=== PATIENT | female | born 1960 | race Caucasian/White ===

== ENCOUNTER → 2017-04-29 | Outpatient (CLI) | payer BC ==
[~2017-04-29] MED LIST: ABILIFY2 MG PO; AMLO5TAB PO; AMLODIPINE BES2.5 MG PO; AMLODIPINE/BENA1 CA2 PO; ASPIRIN ADULT L81 M2 PO; ATORVASTATIN 4040 MG PO; AVPAK AZITHROM250 MG PO; BREO ELLIPTA1 POW IH; BUSPIRONE 5MG TA5 MG PO; BUSPIRONE HCL15 MG PO; CARVEDILOL 25MG25 MG PO; DARVOCET-N 1001 EACH PO; DULOXETINE HYDR60 MG PO; DULOXETINE60 MG PO; EFFIENT10 MG PO; FLEXERIL10 MG PO; HYDROCHLOROTH12.5 M1 PO; HYDROCHLOROTHIA50 MG; IMDUR 30MG. TAB30 MG PO; LEVOTHYROXIN0.075 M3 PO; LEVOTHYROXIN0.088 MG PO; LEVOTHYROXINE0.05 M3 NG; LEXAPRO 20 MG T20 MG PO; LOSARTAN POTAS100 MG PO; LOSARTAN POTASS50 MG PO; MAXZIDE 25 MG-31 TAB PO; MEDROL 4MG TABLE4 MG PO; MELOXICAM15 MG PO; MELOXICAM7.5 MG; MONTELUKAST SOD10 MG PO; MUCINEX D 600 M1 TER PO; NITROGLYCERIN0.4 MG SL; PANTOPRAZOLE SO40 MG PO; PREDNISONE 20MG20 MG PO; PRISTIQ50 MG PO; PROAIR HFA0.09 MG/AC IH; PROMETHAZINE D118 ML PO; ROBITUSSIN DM S10 ML NG; TESSALON PERLE100 MG PO; VENLAFAXINE HCL75 MG; VOLTAREN75 MG PO
--- NOTE | 2017-05-01 14:40 | RADIOLOGY REPORT PS360 ---
US BREAST-LT COMPLETE W/AXILLA COMPARISON: Digital mammograms 04/06/2017 and additional views left breast 04/29/2017 HISTORY: Evaluation for asymmetric density left breast TECHNIQUE: Targeted ultrasound FINDINGS: There is a small oval hypoechoic cystic lesion at the 10:00 position mid breast measuring 0.5 x 0.5 x 0.2 centers. This shows somewhat oval configuration and corresponds in size and location to the asymmetric density on the mammogram. There is moderate diffuse heterogenic echogenicity of the surrounding breast. There is an additional tiny hypoechoic lesion at the 6:00 position mid breast measuring 0.4 x 0.2 x 0.4 cm. There is no suspicious solid lesions seen. There is a somewhat rounded otherwise normal-appearing node in the axilla. IMPRESSION: Tiny hypoechoic likely cystic lesions left breast the larger which corresponds to the asymmetric density in size and location. I would recommend a follow-up left mammogram and ultrasound of left breast in 6 months to evaluate for interval stability.
== END ==
LOC: RAD 12:42
DX: R92.2 Inconclusive mammogram (principal)
CPT/HCPCS: G0206-LT

== ENCOUNTER → 2017-06-25 | Outpatient (CLI) | payer BC ==
[2017-06-25 07:52] LABS: HEMOGLOBIN 15.5 g/dL (12.2-16.2); LYMPH # 2.2 K/mm3 (0.7-4.5); LYMPH % 33.1 % (10-50.0)
[2017-06-25 09:21] LABS: BUN 14 mg/dL (7-18)
[2017-06-25 09:22] LABS: GFR (ESTIMATED) 57 ML/MIN (59-)
== END ==
LOC: LAB 07:35 → RT 07:35
PROVIDERS: Family Medicine
DX: Z01.810 Encounter for preprocedural cardiovascular examination (principal); Z01.811 Encounter for preprocedural respiratory examination; Z01.812 Encounter for preprocedural laboratory examination

== ENCOUNTER → 2017-08-04 | Outpatient (CLI) | payer BC ==
[2017-08-04 09:33] LABS: BUN 20 mg/dL (7-18); GFR (ESTIMATED) 57 ML/MIN (59-)
--- NOTE | 2017-08-04 17:24 | RADIOLOGY REPORT PS360 ---
CT HEAD-W/WO CONTRAST INDICATION: Severe persistent headache PERSISTENT HEADACHE ORDERING PHYSICIAN: Luke Carr MD PATIENT AGE: 56 years COMPARISON: 11/27/2014 TECHNIQUE: Axial images are obtained without contrast. Sagittal and coronal reformatted images are reviewed as well. FINDINGS: No midline shift, mass effect, intracranial hemorrhage, hydrocephalus, or enhancing lesion is evident. No intra or extra-axial mass. There are subtle decreased attenuation in the subcortical region of the right frontal parietal area with a small gliotic area. This does not enhance and is without mass effect. No acute calvarial abnormalities are evident. No mastoid effusion or sinus air-fluid level. IMPRESSION: 1. No acute intracranial findings. 2. Small area of gliosis in the right frontal temporal region
== END ==
LOC: RAD 08:56
PROVIDERS: Family Medicine
DX: G44.52 New daily persistent headache (NDPH) (principal)
CPT/HCPCS: Q9967

== ENCOUNTER → 2017-10-01 | Outpatient (CLI) | payer BC ==
--- NOTE | 2017-10-01 11:29 | RADIOLOGY REPORT PS360 ---
[id number] (MIDDLE)-3 VIEWS Ordering Physician: Luke Carr MD Patient Age: 56 years: Female HISTORY: NEOPLASM OF UNSPECIFIED BEHAVIOR OF BONE AND SKIN Patient has a towards like area at the posterior aspect of the distal third DIP joint.. Could not remove ring from fourth finger. TECHNIQUE: 3 views left third finger COMPARISON :No previous studies for comparison FINDINGS the second third and fourth finger are visualized. There is subtle ovoid soft tissue density projected along the radial aspect DIP joint third finger. This is seen on the frontal projection. This feature compatible of history of wart-like structure in this region. Measures nearly 6 mm in length x 4 mm transverse but this likely does include some magnification. It is best seen on the frontal projection. No associated osseous findings Otherwise minor degenerative changes at the IP joints of the finger. Subtle narrowing at DIP joints more evident than PIP joints. With perhaps some early sharpening about these joints reflecting minor early degenerative changes at DIP joints.... Only borderline narrowing is seen at the PIP joints . . The patient's ring finger obscures the midshaft of fourth finger. There may be some minor swelling at the fingers., But this is equivocal. IMPRESSION: ...... 1. Note roughly 6 mm x 4 mm vague ovoid soft tissue density projected along the radial aspect of the DIP joint of the long finger on today's frontal projection only... This would be compatible with the history of wart here Otherwise osseous structures appear intact with only question of perhaps some very minor early degenerative changes at DIP joints, more so than PIP joints.
== END ==
LOC: RAD 10:06
DX: D49.2 Neoplasm of unspecified behavior of bone, soft tissue, and skin (principal)